=== PATIENT | male | born 1940 | race Two or more races ===

== ENCOUNTER 2019-09-13 14:07 | Emergency (ER) | payer MEDICARE, OTHER ==
[~2019-09-13] VITALS: Ht 175.3 cm; Wt 81.6 kg
[2019-09-13 15:23] VITALS: BP 105/65
[2019-09-13] MEDS ORDERED: KETOROLAC TROMETH 60MG/2ML VIAL IM ONE (16:00)
== END 2019-09-13 17:08 | disposition home or self-care (01) ==
LOC: ER 14:07
DX: M54.16 Radiculopathy, lumbar region (principal)
CPT/HCPCS: 72100; 73502; 96372; 99284; J1885